=== PATIENT | female | born 1960 | race Caucasian/White ===

== ENCOUNTER 2017-11-15 09:57 | Inpatient (IN) | payer MEDICARE, BC ==
[~2017-11-15] VITALS: Ht 172.7 cm; Wt 115.2 kg
[~2017-11-15 09:57] MED LIST: ASPIR 8181 MG PO; ASTAGRAF XL1 MG PO; AVAPRO 150 MG150 MG PO; BACTRIM DS TAB1 EACH PO; CALCIUM 500 +1 EAC5 PO; CELLCEPT 250 M250 M1 PO; LOPRESSOR50 PO; MAGOX 400400 MG PO; OMEPRAZOLE40 MG PO; PREDNISONE 10 M10 MG PO; TACROLIMUS1 MG PO; UNICOMPLEX M TA1 TA1 PO; ZOCOR20 MG PO
[2017-11-15 10:03] VITALS: BP 120/75
[2017-11-15] MEDS ORDERED: PROCHAMBER1 EACH INH (10:33)
[2017-11-15 11:02] LABS: HEMATOCRIT 40.7 % (37.0-47.0); HEMOGLOBIN 13.1 gm/dL (12.0-15.0); MCH 26.8 pg (26.0-34.0); MCHC 32.2 g/dL (28.0-37.0); MCV 83.3 fL (80.0-100.0); MPV 8.1 fl. (7.2-11.1); NUCLEATED RBCS 0 /100WBC; PLATELET COUNT* 277 thou/uL (150-400); RBC 4.89 mil/uL (4.20-5.00); RDW-CV 15.3 % (10.5-14.5); WBC 11.2 thou/uL (4.0-11.0)
[2017-11-15 11:11] LABS: ANION GAP 7 mmol/L (7-16); BUN 23 mg/dL (7-18); CALCIUM 9.5 mg/dL (8.5-10.1); CHLORIDE 97 mmol/L (98-107); CO2 28 mmol/L (21-32); CREATININE 1.9 mg/dL (0.6-1.3); GLUCOSE 126 mg/dL (70-99); POTASSIUM 3.9 mmol/L (3.5-5.1); SODIUM 132 mmol/L (136-145)
[2017-11-15 11:22] LABS: ALBUMIN 3.2 g/dL (3.4-5.0); ALKALINE PHOSPHATASE 89 U/L (46-116); NT-PRO BRAIN NAT PEPTIDE 1008 pg/mL (<300); SGOT 18 U/L (15-37); SGPT 21 U/L (30-65); TOTAL BILIRUBIN 0.8 mg/dL (<0.1-1.0); TOTAL PROTEIN 6.5 g/dL (6.4-8.2); TROPONIN-I LEVEL <0.06 ng/mL (<0.06)
[2017-11-15 11:26] LABS: ABSOLUTE BASOPHILS 0.1 thou/uL (0.0-0.2); ABSOLUTE LYMPHOCYTES 1.5 thou/uL (0.8-5.3); ABSOLUTE MONOCYTES 1.6 thou/uL (0.0-1.2); ABSOLUTE NEUTROPHILS 8.1 thou/uL (1.6-8.1); PLATELET ESTIMATE ADEQUATE
[2017-11-15 12:00] VITALS: BP 128/53
[2017-11-15 12:09] VITALS: BP 102/53
[2017-11-15 17:11] VITALS: BP 141/74
[2017-11-15 20:40] VITALS: BP 104/43
[2017-11-16] VITALS: BP 131/59
[2017-11-16 04:25] LABS: HEMATOCRIT 36.7 % (37.0-47.0); HEMOGLOBIN 11.8 gm/dL (12.0-15.0); MCH 27.2 pg (26.0-34.0); MCHC 32.2 g/dL (28.0-37.0); MCV 84.3 fL (80.0-100.0); MPV 8.5 fl. (7.2-11.1); RBC 4.35 mil/uL (4.20-5.00); RDW-CV 15.1 % (10.5-14.5); WBC 7.4 thou/uL (4.0-11.0)
[2017-11-16 04:51] LABS: CALCIUM 8.9 mg/dL (8.5-10.1); CREATININE 1.8 mg/dL (0.6-1.3); MAGNESIUM 1.6 mg/dL (1.8-2.4); POTASSIUM 3.8 mmol/L (3.5-5.1)
[2017-11-16 08:00] VITALS: BP 156/74
[2017-11-16 10:41] LABS: URINE BILIRUBIN NEGATIVE (Negative); URINE BLOOD NEGATIVE (Negative); URINE CLARITY CLEAR; URINE COLOR YELLOW; URINE GLUCOSE-RANDOM 1+ (Negative); URINE KETONES NEGATIVE (Negative); URINE LEUKOCYTES-REFLEX NEGATIVE (Negative); URINE NITRITE-REFLEX NEGATIVE (Negative); URINE PROTEIN NEGATIVE (Negative); URINE SPECIFIC GRAVITY 1.015 (1.005-1.030); URINE UROBILINOGEN 0.2 E.U./dl (0.2-1.0)
--- NOTE | 2017-11-16 11:06 | EKG ---
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: : 1960 Requested By: Guille Valera Order Number: [id number] MD: Cristopher Bourgeois Measurements Intervals [place] Rate: 89 P: 29 [place]: 139 QRS: 13 QRSD: 97 T: 34 QT: 340 QTc: 414 Interpretive Statements Sinus rhythm Compared to ECG 01/24/2016 14:05:58 Sinus tachycardia no longer present Atrial premature complex(es) no longer present ST (T wave) deviation no longer present Electronically Signed On 11-16-2017 11:05:53 CDT by Cristopher Bourgeois [email or web address] <ELECTRONICALLY SIGNED> By: Cristopher Bourgeois MD, [facility] 11/16/17 1105 1042 1042 Cristopher Bourgeois MD, [facility] /EPI
[2017-11-16 16:00] VITALS: BP 148/76
[2017-11-16 20:40] VITALS: BP 175/74
[2017-11-17 04:26] LABS: HEMOGLOBIN 11.8 gm/dL (12.0-15.0); MCH 26.9 pg (26.0-34.0); MCHC 31.9 g/dL (28.0-37.0); MCV 84.3 fL (80.0-100.0); MPV 8.5 fl. (7.2-11.1); RBC 4.39 mil/uL (4.20-5.00); RDW-CV 15.2 % (10.5-14.5); WBC 20.1 thou/uL (4.0-11.0)
[2017-11-17 04:59] LABS: ALBUMIN 2.9 g/dL (3.4-5.0); CALCIUM 9.2 mg/dL (8.5-10.1); CREATININE 1.6 mg/dL (0.6-1.3); MAGNESIUM 1.7 mg/dL (1.8-2.4); PHOSPHORUS* 2.8 mg/dL (2.5-4.9); POTASSIUM 4.3 mmol/L (3.5-5.1); TOTAL BILIRUBIN 0.4 mg/dL (<0.1-1.0); TOTAL PROTEIN 5.7 g/dL (6.4-8.2)
[2017-11-17 08:00] VITALS: BP 185/95
[2017-11-17 12:27] VITALS: BP 160/88
[2017-11-17 18:01] VITALS: BP 150/80
[2017-11-18 04:47] LABS: HEMATOCRIT 38.5 % (37.0-47.0); HEMOGLOBIN 12.4 gm/dL (12.0-15.0); MCH 26.9 pg (26.0-34.0); MCHC 32.1 g/dL (28.0-37.0); MCV 83.8 fL (80.0-100.0); MPV 8.3 fl. (7.2-11.1); RBC 4.59 mil/uL (4.20-5.00); RDW-CV 14.9 % (10.5-14.5); WBC 14.9 thou/uL (4.0-11.0)
[2017-11-18 05:20] LABS: CALCIUM 9.7 mg/dL (8.5-10.1); CREATININE 1.6 mg/dL (0.6-1.3); MAGNESIUM 1.8 mg/dL (1.8-2.4); POTASSIUM 4.6 mmol/L (3.5-5.1); TOTAL BILIRUBIN 0.4 mg/dL (<0.1-1.0); TOTAL PROTEIN 5.8 g/dL (6.4-8.2)
[2017-11-18 08:20] VITALS: BP 154/98
[2017-11-18 09:57] VITALS: BP 154/98
--- NOTE | 2017-12-14 21:06 | CON ---
[address] [address] CONSULTATION Name: FAMILIA GARCIA Room: [address] IN .R.#: [id number] Admission: 11/15/17 Attend Phys: Shiraz Calzada, Discharge: 11/18/17 Date of : 60 Report #: [id number] THIS REPORT FOR: //name// CC: Glenny Ellison Shiraz Calzada DATE OF SERVICE: 11/15/2017 RENAL CONSULTATIONi Thank you very much for asking to see the patient. HISTORY OF PRESENT ILLNESS: The patient is a 57-year-old white female with a known history of kidney and pancreas transplantation. She was admitted to [facility] on 11/15/2017 with a several-day history of nausea and vomiting and unable to keep fluids down. She also reported a low-grade fever on Thursday. Renal consultation was requested to assist with transplant and immunosuppression management. Nausea and vomiting have improved. There has been no chest pains or shortness of breath. No further fever. In fact, all other systems were negative. PAST MEDICAL HISTORY: 1. Kidney transplant in 2003, baseline creatinine of 1.5. 2. Pancreas transplant in 2004. 3. Chronic immunosuppression. 4. History of shingles. 5. History of coronary artery disease and stent placement. 6. COPD. 7. Gastroesophageal reflux. 8. Hypertension. ALLERGIES: No known drug allergies. SOCIAL HISTORY: Negative for tobacco use or alcohol use. She lives with her sister. FAMILY HISTORY: Negative for kidney disease. CURRENT MEDICATIONS: Multivitamin daily, magnesium 400 mg daily, calcium 600 mg daily, aspirin 81 mg daily, losartan 50 mg daily, Rocephin 1 g daily, Protonix 20 mg daily, tacrolimus 1 mg at bedtime, enoxaparin 30 mg at bedtime, mycophenolate 250 mg b.i.d., metoprolol succinate 25 mg b.i.d., atorvastatin 20 mg at bedtime, Zofran, methylprednisolone 62.5 mg every 8 hours. PHYSICAL EXAMINATION: VITAL SIGNS: Blood pressure 102/53, pulse 88, temperature 99.2. [place] [address] CONSULTATION Name: FAMILIA GARCIA Room: [address]#: [id number] Admission: 11/15/17 Attend Phys: Shiraz Calzada, Discharge: 11/18/17 Date of : 60 Report #: [id number] GENERAL: She is awake and alert, well appearing. NECK: No jugular venous distention. CHEST: Clear. HEART: Regular rate and rhythm. ABDOMEN: Soft. There was no edema. LABORATORY DATA: White count 11,200, hemoglobin 13.1, hematocrit 40.7%, platelet count of [id number]. Sodium 132, potassium 3.9, chloride 97, CO2 28, BUN 23, creatinine 1.9, calcium 9.5, phosphorus 3.3, magnesium 1.5. IMPRESSION: 1. Kidney transplant. Her baseline creatinine is 1.5. Her current creatinine is 1.9, likely due to volume depletion. 2. Pancreas transplant in 2004. 3. Chronic immunosuppression. 4. Volume depletion. 5. Febrile illness, likely bronchitis. 6. Hypertension. 7. Chronic obstructive pulmonary disease. 8. Gastroesophageal reflux. 9. History of coronary artery disease and stent placement. 10. History of shingles. PLAN: 1. We will increase IV fluids. 2. We will adjust her tacrolimus dose. 3. Continue oral prednisone. 4. Follow laboratory data carefully. Further recommendations will depend on clinical course. Thank you very much for asking to see the patient and assist in her care. <ELECTRONICALLY SIGNED> By: Akbar Vicente MD 12/14/17 2106 1427 0018Manav Alexander MD /nt
== END 2017-11-18 12:10 | disposition home or self-care (01) | DRG 871 ==
LOC: M.ERS 09:57 → M.3W 11:47 → M.TBA-ER 11:47 → M.3W 12:19
PROVIDERS: Emergency Medicine Emergency Medical Services; Internal Medicine; ADMIT Family Medicine
DX: A41.9 Sepsis, unspecified organism (principal); J96.01 Acute respiratory failure with hypoxia; N17.9 Acute kidney failure, unspecified; Z94.0 Kidney transplant status; Z94.83 Pancreas transplant status; E86.0 Dehydration; K21.9 Gastro-esophageal reflux disease without esophagitis; E66.01 Morbid (severe) obesity due to excess calories; E83.42 Hypomagnesemia; D89.9 Disorder involving the immune mechanism, unspecified; J44.9 Chronic obstructive pulmonary disease, unspecified; I25.10 Atherosclerotic heart disease of native coronary artery without angina pectoris; I12.9 Hypertensive chronic kidney disease with stage 1 through stage 4 chronic kidney disease, or unspecified chronic kidney disease; N18.9 Chronic kidney disease, unspecified; Z87.891 Personal history of nicotine dependence; Z98.61 Coronary angioplasty status; I25.2 Old myocardial infarction; Z98.49 Cataract extraction status, unspecified eye; Z82.49 Family history of ischemic heart disease and other diseases of the circulatory system; Z83.3 Family history of diabetes mellitus; Z82.5 Family history of asthma and other chronic lower respiratory diseases; Z79.82 Long term (current) use of aspirin; Z79.899 Other long term (current) drug therapy; Z68.38 Body mass index [BMI] 38.0-38.9, adult

== ENCOUNTER 2017-11-22 05:54 | Inpatient (IN) | payer MEDICARE, BC ==
[2017-11-22] VITALS (9 sets, daily range): BP systolic 93–181; BP diastolic 43–78
[~2017-11-22] VITALS: Ht 170.2 cm; Wt 112.9 kg
[~2017-11-22 05:54] MED LIST changes: +PROCHAMBER1 EACH INH
[2017-11-22 06:23] LABS: HEMATOCRIT 44.5 % (37.0-47.0); HEMOGLOBIN 14.4 gm/dL (12.0-15.0); MCH 27.1 pg (26.0-34.0); MCHC 32.4 g/dL (28.0-37.0); MCV 83.6 fL (80.0-100.0); MPV 8.1 fl. (7.2-11.1); NUCLEATED RBCS 0 /100WBC; PLATELET COUNT* 289 thou/uL (150-400); RBC 5.32 mil/uL (4.20-5.00); RDW-CV 15.6 % (10.5-14.5); WBC 13.3 thou/uL (4.0-11.0)
[2017-11-22 06:38] LABS: ANION GAP 8 mmol/L (7-16); BUN 28 mg/dL (7-18); CALCIUM 9.3 mg/dL (8.5-10.1); CHLORIDE 99 mmol/L (98-107); CO2 28 mmol/L (21-32); GLUCOSE 122 mg/dL (70-99); POTASSIUM 4.3 mmol/L (3.5-5.1); SODIUM 135 mmol/L (136-145)
[2017-11-22 06:49] LABS: ALBUMIN 3.4 g/dL (3.4-5.0); ALKALINE PHOSPHATASE 80 U/L (46-116); SGOT 24 U/L (15-37); SGPT 33 U/L (30-65); TOTAL PROTEIN 6.6 g/dL (6.4-8.2); TROPONIN-I LEVEL <0.06 ng/mL (<0.06)
[2017-11-22 06:50] LABS: NT-PRO BRAIN NAT PEPTIDE 1304 pg/mL (<300)
[2017-11-22 06:59] LABS: ABSOLUTE LYMPHOCYTES 1.1 thou/uL (0.8-5.3); ABSOLUTE MONOCYTES 0.7 thou/uL (0.0-1.2); ABSOLUTE NEUTROPHILS 11.6 thou/uL (1.6-8.1); PLATELET ESTIMATE ADEQUATE
[2017-11-22 07:00] LABS: ANISOCYTOSIS 1+; POIKILOCYTOSIS 1+
[2017-11-22 09:05] LABS: BE -2.3 mmol/L (-2 to +3); PCO2 28.1 mmHg (35.0-45.0); PO2 82.7 mmHg (75.0-100.0); pH 7.471 (7.340-7.450)
--- NOTE | 2017-11-22 12:37 | EKG ---
[place] [address] ELECTROCARDIOGRAM REPORT Name: FAMILIA GARCIA Room: [address] ADM IN ..#: [id number] Admission: 11/22/17 Attend Phys: Shiraz Calzada, Discharge: Date of : 60 Report #: [id number] THIS REPORT FOR: //name// [facility] ED Test Date: 2017-11-22 Test Time: 06:17:50 Pat Name: FAMILIA GARCIA Department: Room: 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
[2017-11-23 04:00] VITALS: BP 150/74
[2017-11-23 05:05] LABS: ABSOLUTE LYMPHOCYTES 0.6 thou/uL (0.8-5.3); ABSOLUTE MONOCYTES 0.5 thou/uL (0.0-1.2); ABSOLUTE NEUTROPHILS 5.7 thou/uL (1.6-8.1); BASOPHILS 0.2 %; HEMATOCRIT 37.7 % (37.0-47.0); HEMOGLOBIN 12.5 gm/dL (12.0-15.0); LYMPHOCYTES 9.4 %; MCH 27.3 pg (26.0-34.0); MCHC 33.1 g/dL (28.0-37.0); MCV 82.5 fL (80.0-100.0); MONOCYTES 7.4 %; MPV 8.2 fl. (7.2-11.1); NUCLEATED RBCS 0 /100WBC; PLATELET COUNT* 225 thou/uL (150-400); RBC 4.57 mil/uL (4.20-5.00); RDW-CV 15.2 % (10.5-14.5); WBC 6.9 thou/uL (4.0-11.0)
[2017-11-23 05:45] LABS: CALCIUM 8.9 mg/dL (8.5-10.1); CREATININE 1.3 mg/dL (0.6-1.3); POTASSIUM 4.1 mmol/L (3.5-5.1)
[2017-11-23 08:00] VITALS: BP 113/63
[2017-11-23] MEDS ORDERED: METOPROLOL TART25 MG PO (12:07)
[2017-11-23 12:14] VITALS: BP 151/56
== END 2017-11-23 13:00 | disposition home or self-care (01) | DRG 683 ==
LOC: M.ERS 05:54 → M.2W 09:00 → M.TBA-ER 09:00 → M.2W 09:52
PROVIDERS: Emergency Medicine Emergency Medical Services; Internal Medicine; Personal Emergency Response Attendant; ADMIT Family Medicine
DX: N17.9 Acute kidney failure, unspecified (principal); Z94.0 Kidney transplant status; Z94.83 Pancreas transplant status; E86.0 Dehydration; I95.1 Orthostatic hypotension; I25.2 Old myocardial infarction; F17.210 Nicotine dependence, cigarettes, uncomplicated; N18.9 Chronic kidney disease, unspecified; Z79.899 Other long term (current) drug therapy; Z98.49 Cataract extraction status, unspecified eye; Z82.49 Family history of ischemic heart disease and other diseases of the circulatory system; Z82.5 Family history of asthma and other chronic lower respiratory diseases; Z83.3 Family history of diabetes mellitus; Z95.5 Presence of coronary angioplasty implant and graft

== ENCOUNTER → 2018-06-01 | Outpatient (CLI) | payer MEDICARE, BC ==
[~2018-06-01] MED LIST changes: +METOPROLOL TART25 MG PO
== END ==
LOC: M.RAD 05-27 15:30
DX: Z13.820 Encounter for screening for osteoporosis (principal); Z78.0 Asymptomatic menopausal state

== ENCOUNTER 2018-12-23 11:02 | Inpatient (IN) | payer MEDICARE, BC ==
[~2018-12-23] VITALS: Ht 170.2 cm; Wt 111.6 kg
[2018-12-23 11:04] VITALS: BP 142/50
[2018-12-23] MEDS ORDERED: SINGULAIR 10 MG10 M1 PO (11:13)
[2018-12-23 11:45] LABS: HEMATOCRIT 36.3 % (37.0-47.0); HEMOGLOBIN 11.9 gm/dL (12.0-15.0); MCH 29.9 pg (26.0-34.0); MCHC 32.9 g/dL (28.0-37.0); MCV 91.1 fL (80.0-100.0); MPV 7.7 fl. (7.2-11.1); NUCLEATED RBCS 0 /100WBC; PLATELET COUNT* 274 thou/uL (150-400); RBC 3.99 mil/uL (4.20-5.00); RDW-CV 15.7 % (10.5-14.5); WBC 18.9 thou/uL (4.0-11.0)
[2018-12-23 11:53] LABS: BE 1.6 mmol/L (-2 to +3); PCO2 38.8 mmHg (35.0-45.0); PO2 100.2 mmHg (75.0-100.0)
[2018-12-23 12:05] LABS: CALCIUM 8.6 mg/dL (8.5-10.1); POTASSIUM 4.1 mmol/L (3.5-5.1)
[2018-12-23 12:12] LABS: ALBUMIN 2.8 g/dL (3.4-5.0); MAGNESIUM 1.2 mg/dL (1.8-2.4); TOTAL BILIRUBIN 0.7 mg/dL (<0.1-1.0); TOTAL PROTEIN 5.8 g/dL (6.4-8.2)
[2018-12-23 12:26] LABS: ABSOLUTE LYMPHOCYTES 1.1 thou/uL (0.8-5.3); ABSOLUTE MONOCYTES 0.9 thou/uL (0.0-1.2); ABSOLUTE NEUTROPHILS 16.8 thou/uL (1.6-8.1); PLATELET ESTIMATE ADEQUATE
[2018-12-23 15:31] LABS: URINE BILIRUBIN NEGATIVE (Negative); URINE BLOOD NEGATIVE (Negative); URINE CLARITY CLEAR; URINE COLOR YELLOW; URINE GLUCOSE-RANDOM NEGATIVE (Negative); URINE KETONES NEGATIVE (Negative); URINE LEUKOCYTES-REFLEX 1+ (Negative); URINE NITRITE-REFLEX NEGATIVE (Negative); URINE PROTEIN NEGATIVE (Negative); URINE SPECIFIC GRAVITY <= 1.005 (1.005-1.030); URINE UROBILINOGEN 0.2 E.U./dl (0.2-1.0)
[2018-12-23 15:37] LABS: HYALINE CASTS 0-3 Few /LPF (None Seen); MUCUS None Seen strn/LPF (None Seen); SQUAMOUS >10 Many /LPF (0-3)
[2018-12-23 15:38] LABS: BACTERIA-REFLEX 1-9 Few /HPF (None Seen); CRYSTALS None Seen /LPF (None Seen); URINE RBC 0-2 Rare /HPF (0-2); URINE WBC-REFLEX 6-15 Few /HPF (0-5)
--- NOTE | 2018-12-23 16:33 | NUR ---
REPORT GIVEN TO VANCE ROME WHO IS TO ASSUME PT CARE INPATIENT NURSE.
[2018-12-23 16:35] VITALS: BP 179/71
--- NOTE | 2018-12-23 17:00 | NUR ---
PT ARRIVED TO UNIT AT APPROX 1650 VIA CART, ABLE TO TRANSFER SELF TO BED. VSS, FEBRILE, REMAINS ON 2LPM VIA NC FOR O2 SAT GREATER THAN 91%, PT CONT TO COUGH, STATES COUGHING UP THICK GREEN PHLEGM. UP WITH STANDBY ASSIST D/T WEAKNESS, ORIENTED TO CALL LIGHT AND ROOM.
--- NOTE | 2018-12-23 18:06 | EKG ---
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1960 Requested By: Reba Pinto Order Number: [id number] MD: Kevin Yeung Measurements Intervals [place] Rate: 82 P: 25 [place]: 138 QRS: 7 QRSD: 83 T: 19 QT: 370 QTc: 432 Interpretive Statements Sinus rhythm Low voltage, precordial leads Compared to ECG 11/22/2017 06:17:50 Low QRS voltage now present Electronically Signed On 12-23-2018 18:06:07 CDT by Kevin Yeung [email or web address] <ELECTRONICALLY SIGNED> By: Bhumi Yeung MD, [facility] 12/23/18 1806 1109 1109 Bhumi Yeung MD, [facility] /EPI
[2018-12-23] MEDS ORDERED: VALTREX 500 MG500 MG PO (18:37)
[2018-12-23] MEDS ORDERED: IRBESARTAN150 MG PO (18:39)
[2018-12-23 20:00] VITALS: BP 156/60
[2018-12-23 21:35] LABS: HEMATOCRIT 34.6 % (37.0-47.0); HEMOGLOBIN 11.4 gm/dL (12.0-15.0); MCH 29.9 pg (26.0-34.0); MCV 90.7 fL (80.0-100.0); MPV 7.4 fl. (7.2-11.1); RBC 3.81 mil/uL (4.20-5.00); RDW-CV 16.1 % (10.5-14.5)
[2018-12-23 21:47] LABS: CALCIUM 8.7 mg/dL (8.5-10.1); CREATININE 1.9 mg/dL (0.6-1.3); POTASSIUM 4.2 mmol/L (3.5-5.1)
[2018-12-24 00:36] VITALS: BP 177/63
[2018-12-24 04:48] VITALS: BP 148/70
--- NOTE | 2018-12-24 04:53 | NUR ---
vitals wnl, afebrile. able to walk to bathroom with a steady gait. non-productive cough, knee pain main concern. otherwise uneventful night. able to turn self in bed. remains on 2L per NC. call light within reach.
[2018-12-24 08:00] VITALS: BP 132/65
[2018-12-24 12:10] VITALS: BP 157/76
--- NOTE | 2018-12-24 15:20 | NUR ---
Pt is A&O. Pt lives in the basement apartment of her sisters home. Independent, they share meals. Pt has a walker, cane, grab bars and shower chair, Pt states that she does not currently use any of her DME. No o2. Hx of HH, does not recall the name of the agency. No hx of SNF. Goal is home at ut, no needs anticipated. Following.
[2018-12-24 15:31] VITALS: BP 150/56
--- NOTE | 2018-12-24 17:00 | NUR ---
ASSUMED PT CARE AT 0730. PT WAS NOTED TO BE SITTING IN HIS RECLINER, HIS SON VISITING WITH HIM. PT DENIED HAVING ANY PAIN OR DISCOMFORT. ASSESSMENT COMPLETED AND CHARTED, HOURLY ROUNDS COMPLETED AND CHARTED.MEDS GIVEN PER ORDERS, PT WAS DISCHARGED TO HOME AND RIDING WITH HIS SISTER. THIS NURSE ASSISTED PT TO THE FRONT OF HOSPITAL VIA W/C AND INTO HIS SISTERS TRUCK SAFELY. TELE LEADS, MONITOR AND IV WERE REMOVED BEFORE PT LEFT THE ROOM. PT HAD ALL HIS BELONGINGS AND HIS DISCHARGE PACKET WITH HIM WHEN HE LEFT.
--- NOTE | 2018-12-24 18:53 | NUR ---
ASSUMED PT CARE AT 0730. ASSESSMENT ET VS COMPLETE ET DOCUMENTED IN THE CHART. PT HOURLY ROUNDS COMPLETED, CARD MONITOR TRACING SR. UA COLLECTED ET SENT TO LAB FOR ANALYSIS. PT PLEASANT COOPERATIVE WITH HER NURSING CARES. PT HAD FEVER ET CHILLS.TREATED WITH TYLENOL. FEVER RESPONDEDTO TYLENOL ET DECLINED SLOW BUT STEADY.
[2018-12-24 20:00] VITALS: BP 153/62
[2018-12-25] VITALS: BP 155/64
[2018-12-25 04:00] VITALS: BP 153/67
--- NOTE | 2018-12-25 04:06 | NUR ---
ASSUMED PT CARE AT APPROX 1930. PT IS AWAKE AND ORIENTED X4. VSS ON 2L OF O2/NC. SATELLITE SPECIALIST IN PLACE TRACING SR. ASSESSMENT DONE AND CHARTED. [T C/O BILATERAL KNEE PAIN RELIEVED BY TYLENOL GIVEN PER JUN. PT IS ABLE TO SLEEP MOST OF THE NIGHT. CALL LIGHT WITHIN REACH. HOURLY ROUNDING DONE FOR PT SAFETY. FALL PRECAUTIONS IN PLACE.
[2018-12-25 05:11] LABS: ABSOLUTE EOSINOPHILS 0.1 thou/uL (0.0-0.7); ABSOLUTE LYMPHOCYTES 0.8 thou/uL (0.8-5.3); ABSOLUTE MONOCYTES 0.5 thou/uL (0.0-1.2); ABSOLUTE NEUTROPHILS 9.5 thou/uL (1.6-8.1); BASOPHILS 0.4 %; EOSINOPHILS 1.2 %; HEMATOCRIT 31.6 % (37.0-47.0); HEMOGLOBIN 10.3 gm/dL (12.0-15.0); LYMPHOCYTES 7.6 %; MCH 29.9 pg (26.0-34.0); MCHC 32.7 g/dL (28.0-37.0); MCV 91.6 fL (80.0-100.0); MPV 8.1 fl. (7.2-11.1); NUCLEATED RBCS 0 /100WBC; PLATELET COUNT* 215 thou/uL (150-400); POLYS 85.8 %; RBC 3.45 mil/uL (4.20-5.00); WBC 11.1 thou/uL (4.0-11.0)
--- NOTE | 2018-12-25 05:50 | CON ---
[address] [address] CONSULTATION Name: FAMILIA GARCIA Room: [address] IN M.R.#: [id number] Admission: 12/23/18 Attend Phys: Oscar Duke Discharge: Date of : 60 Report #: [id number] THIS REPORT FOR: //name// CC: Glenny Ellison Raleigh Sauer DATE OF SERVICE: 12/24/2018 ATTENDING PHYSICIAN: Dr. Sauer. REASON FOR EVALUATION: Febrile illness with likely a lower respiratory tract infection in the setting of kidney-pancreas transplantation. HISTORY OF PRESENT ILLNESS: Chart reviewed, the patient examined. This 58-year-old woman, with known diabetes mellitus complicated by vasculopathy with previous kidney pancreas transplantation at least 4 years, who was noted with, has a chronic cough; however, over the course of the last 48 hours prior to her admission, developed fevers somewhat more productive of colored sputum, sore throat, and congestion. Due to its worsening nature, she was brought to the Emergency Room and subsequently admitted. Initial evaluation is question of a patchy bibasilar pneumonitis. White count was elevated at 18.9. Prominent neutrophilia. Urinalysis 6-15 white cells, 1-9 bacteria. Started empirically on combination therapy with azithromycin and ceftriaxone. Blood cultures were collected thus far no growth. She is quite ill at this point. She is maintained on 2 liters nasal cannula oxygen. She is not encephalopathic, not hemodynamically labile. ALLERGIES: None known. MEDICATIONS: Include tacrolimus, azithromycin, prednisone, acyclovir, ceftriaxone, montelukast, metoprolol, atorvastatin, mycophenolate, guaifenesin, pantoprazole, ipratropium and albuterol inhaler. PAST MEDICAL HISTORY: As described above with a kidney pancreas transplant, history of diabetes mellitus, known vasculopathy with previous acute myocardial infarction in 2003 and stenting, chronic renal insufficiency. SOCIAL HISTORY: Former smoker. No ethanol, no illicit drug use. FAMILY HISTORY: Noncontributory. REVIEW OF SYSTEMS: Admits to shaking chills somewhat diminished appetite. Denies significant gastrointestinal related issues. No new onset eruptions. PHYSICAL EXAMINATION: GENERAL: She appears ill, although not overtly toxic, [place] [address] CONSULTATION Name: FAMILIA GARCIA Room: [address] IN [facility]#: [id number] Admission: 12/23/18 Attend Phys: Oscar Duke Discharge: Date of : 60 Report #: [id number] decubitus position. She does awaken. She makes eye contact. Most recent appears slightly undernourished. VITAL SIGNS: Temperature 101.5, pulse 85, respirations 17, blood pressure 157/76. SKIN: Warm, dry, no rashes. HEENT: Normocephalic. Extraocular muscles intact. NECK: Supple. LUNGS: Few scattered crackles, primarily at the bases. HEART: Regular. I do not appreciate murmur. ABDOMEN: Soft, mildly distended, nontender. No cyanosis. GENITOURINARY: Deferred. LABORATORY DATA: Enlargement echogenic right kidney, normal cortical thickness. Nothing for obstruction. Blood cultures sterile thus far. Prealbumin 14.2. Electrolytes: Sodium 134, potassium 4.2, chloride 101, bicarbonate is 24, anion gap of 9, BUN and creatinine 29 and 1.9. CBC: White count of 17.0, H and H 11.4 and 34.6, platelets of 257. Lactic acid 1.3. ABGs: pH 7.440, pCO2 of 38, pO2 of 100.2 on nasal cannula 2 liters. ASSESSMENT: Febrile illness, associated respiratory tract symptoms. She is quite ill. I think it is more likely common process, perhaps a pneumococcus. We will send off urinary antigens, also check for influenza. There has been some cases in the area thus far. Can entirely exclude opportunistic infections. We will adjust antimicrobial therapy a little bit pending the results of the blood, urine cultures, sputum culture has been ordered, although not collected. Discussed with Dr. Sauer. We will follow. <ELECTRONICALLY SIGNED> By: Leonidas Arellano MD 12/25/18 0550 1303 2350Jomasood Arellano MD /nt
[2018-12-25 08:00] VITALS: BP 197/77
--- NOTE | 2018-12-25 11:44 | NUR ---
ASSUMED CARE OF PATIENT THIS AM AT 0730. PATIENT IS ALERT AND ORIENTED X 4. SHE C/O A HEADACHE THIS AM. SHE HAS BEEN UP TO THE BATHROOM WITH STANDBY ASSIST. IV FLUIDS CONTINUED ORDERED. PATIENT CONTINUES TO RECIEVE IV ANTIBIOTICS. TELE SHOWS NSR. PATIENT MEDICATED FOR BRADSHAW WITH GOOD RESULTS. SHE REMAINS AFEBRILE. NO ACUTE RESPIRATORY DISTRESS. WILL CONTINUE PLAN OF CARE.
[2018-12-25 11:57] VITALS: BP 150/61
[2018-12-25 13:33] LABS: CALCIUM 9.1 mg/dL (8.5-10.1); CREATININE 1.4 mg/dL (0.6-1.3); POTASSIUM 4.6 mmol/L (3.5-5.1)
[2018-12-25 15:56] VITALS: BP 164/72
[2018-12-25 20:00] VITALS: BP 188/65
[2018-12-26] VITALS (7 sets, daily range): BP systolic 153–205; BP diastolic 67–92
--- NOTE | 2018-12-26 04:15 | NUR ---
ASSUMED PT CARE AT APPROX 1930. PT IS AWAKE AND ORIENTED X4. VSS ON ROOM AIR. NO DESATURATIONS NOTED. MICROSTRATEGY ARCHITECT DEVELOPER IN PLACE-TRACING SR. ASSESSMENT DONE AND CHARTED. PT IS ABLE TO SLEEP MOST OF THE NIGHT. CALL LIGHT WITHIN REACH. HOURLY ROUNDING DONE FOR PT SAFETY.
[2018-12-26 05:12] LABS: ALBUMIN 2.4 g/dL (3.4-5.0); CALCIUM 8.7 mg/dL (8.5-10.1); CREATININE 1.3 mg/dL (0.6-1.3); MAGNESIUM 1.6 mg/dL (1.8-2.4); PHOSPHORUS* 3.2 mg/dL (2.5-4.9); POTASSIUM 4.2 mmol/L (3.5-5.1)
--- NOTE | 2018-12-26 10:53 | NUR ---
ASSUMED CARE OF PATIENT THIS AM AT 0730. PATIENT IS ALERT AND ORIENTED X 4. SHE C/O KNEE PAIN THIS AM. PATIENT MEDICATED FOR PAIN. SHE HAS BEEN UP TO PERFORM ADLS. PATIENT IS PROGRESSING TOWARDS GOALS. IV ANTIBIOTICS CONTINUED. WILL CONTINUE PLAN OF CARE.
[2018-12-27] VITALS: BP 201/105
[2018-12-27 00:30] VITALS: BP 169/71
--- NOTE | 2018-12-27 03:52 | NUR ---
ASSUMED PT CARE AT APPROX 1930. PT IS AWAKE AND ORIENTED X4. VSS ON ROOM AIR. CAFE ATTENDANT TRACING SR. ASSESSMENT DONE AND CHARTED. PT C/O NECK AND BACK PAIN RELIEVED BY TYLENOL GIVEN PER JUN. PT IS ABLE TO SLEEP MOST IF THE NIGHT. CALL LIGHT WITHIN REACH.HOURLY ROUNDING DONE FOR SAFETY. FALL PRECAUTIONS IN PLACE.
[2018-12-27 04:00] VITALS: BP 191/87
[2018-12-27 05:07] LABS: ALBUMIN 2.5 g/dL (3.4-5.0); CALCIUM 8.9 mg/dL (8.5-10.1); CREATININE 1.4 mg/dL (0.6-1.3); MAGNESIUM 1.6 mg/dL (1.8-2.4); PHOSPHORUS* 3.2 mg/dL (2.5-4.9); POTASSIUM 3.8 mmol/L (3.5-5.1)
[2018-12-27 08:00] VITALS: BP 198/78
[2018-12-27 12:23] VITALS: BP 175/73
[2018-12-27] MEDS ORDERED: CEFDINIR300 MG PO (13:14)
[2018-12-27] MEDS ORDERED: LOPRESSOR25 PO (13:14)
[2018-12-27] MEDS ORDERED: HYDRALAZINE 2525 MG PO (13:14)
[2018-12-27] MEDS ORDERED: MUCINEX600 MG PO (13:14)
[2018-12-27 15:21] VITALS: BP 175/73
--- NOTE | 2019-01-01 07:32 | CON ---
[address] [address] CONSULTATION Name: FAMILIA GARCIA Room: [address] IN M.R.#: [id number] Admission: 12/23/18 Attend Phys: Oscar Duke Discharge: 12/27/18 Date of : 60 Report #: [id number] THIS REPORT FOR: //name// CC: Glenny Terra Sauer DATE OF SERVICE: 12/24/2018 NEPHROLOGY CONSULTATION CONSULTING PHYSICIAN: Dr. Sauer. REASON FOR NEPHROLOGY CONSULTATION: Acute kidney injury on chronic kidney disease and history of renal transplant. REASON FOR ADMISSION: Shortness of breath. HISTORY OF PRESENT ILLNESS: This is a 58-year-old female with past medical history of kidney pancreas transplant in 2003 and 2004 respectively, follows [facility], transplant was at [facility], multiple episodes of dehydration and acute kidney injuries, and according to the patient, her baseline creatinine is more around 1.7, chronic cough, came in because of greenish sputum, chills and cough. The patient reported that last week, Thursday, she had gone out to the park with lot of children ____, and for the last 2 days, she has not been feeling well with the above symptoms. Her chest x-ray showed pneumonia and she has been started on antibiotics in the form of ceftriaxone and Zithromax and she has been feeling a little better, although she is still having the cough with sputum, but sputum is becoming agriculture consultant in color from darker green in color. She has no trouble urinating. She also takes irbesartan at home. Her blood pressures have not been low. At home, she takes prednisone 10 mg a day, Prograf 0.5 mg in the morning and 0.5 mg in the evening and 1 mg in the morning, CellCept 500 mg twice a day. She is not reporting any diarrhea. ALLERGIES: No known drug allergies. REVIEW OF SYSTEMS: As mentioned in history of present illness, otherwise 10-point review of systems done, negative. HOME MEDICATIONS: Include montelukast, mycophenolate mofetil 500 mg twice a day, irbesartan 150 mg once a day, prednisone 10 mg a day, simvastatin 20 mg a day, omeprazole, calcium carbonate, inhaler, metoprolol tartrate, acyclovir, tacrolimus 0.5 mg and 1 mg and she takes 0.5 mg in the morning and 1 mg in the evening, magnesium oxide 400 mg once a day, multivitamin. PAST MEDICAL AND SURGICAL HISTORY: Includes coronary artery disease with a stent in 2002, kidney pancreas transplant at [facility], cataract surgery, [place] [address] CONSULTATION Name: FAMILIA GARCIA Room: [address] IN M.R.#: [id number] Admission: 12/23/18 Attend Phys: Oscar Duke Discharge: 12/27/18 Date of : 60 Report #: [id number] chronic kidney disease stage 3, baseline creatinine more around 1.6-1.8, pneumonia, sepsis, [place] with stent, cataract surgery, orthostatic hypotension and a fistula in the right arm. FAMILY HISTORY: No history of any kidney disease in the family. SOCIAL HISTORY: She is a former smoker, does not smoke now, does not use alcohol and reports no illicit drugs. She lives with her sister. She moved from [place] not recently, but in the last couple of years. PHYSICAL EXAMINATION: VITAL SIGNS: Her blood pressure is 132/65, pulse rate is 96, respiratory rate is 16, temperature is 37.6 and pulse ox is 96% on 2 liters of oxygen by nasal cannula. GENERAL: She is sitting up in bed. She is awake, alert, oriented x 3. HEAD AND EYES: Atraumatic, normocephalic and had normal conjunctivae. EARS, NOSE, AND THROAT: Mucous membranes are moist. NECK: There is no JVD. CHEST: Shows bilaterally diminished breath sounds and wheezing posteriorly. HEART: S1, S2 normal. No murmurs. ABDOMEN: Soft, nondistended, nontender. Right lower quadrant transplant site looks good. LOWER EXTREMITIES: There is no edema. NEUROLOGICAL: Gross neurological function is intact. PSYCHIATRIC: Mood and affect seems to be normal. LABORATORY DATA: WBC 17.0, hemoglobin 11.4. Sodium was 134, creatinine 1.9 down from 2 and other labs are reviewed. IMAGING: Chest x-ray was reviewed. ASSESSMENT: 1. Acute kidney injury on chronic kidney disease stage 3 and history of kidney pancreas transplant. Baseline creatinine is around ____. Creatinine was 2.0 on admission. The patient also in addition being volume depleted was also taking irbesartan, which will also contribute to acute kidney injury in the setting of volume depletion. UA does not have protein or blood on dipstick and it had some squamous epithelial cells with white cells; however, the patient is not reporting any dysuria at all. 2. Pneumonia in an immunosuppressed patient. She is on antibiotics, ceftriaxone and Zithromax right now as per primary team. 3. History of asthma. 4. On chronic immunosuppression with history of kidney pancreatic transplant. 5. Dehydration. 6. Hypertension. 7. [place] [address] CONSULTATION Name: FAMILIA GARCIA Room: [address]#: [id number] Admission: 12/23/18 Attend Phys: Oscar Duke Discharge: 12/27/18 Date of : 60 Report #: [id number] 8. Hyperlipidemia. 9. Gastroesophageal reflux disorder. PLAN: 1. I have adjusted her immunosuppressive dosages. She takes prednisone 10 mg a day, CellCept 500 mg twice a day and tacrolimus. It looks like she takes 0.5 mg in the morning and 1 mg in the evening. 2. We can decrease the IV fluids to normal saline at 75 mL an hour. 3. I's and O's. 4. We will check a transplant ultrasound. 5. We will also check a tacrolimus level. 6. Avoid NSAIDs and all sorts of nephrotoxic agents. 7. Creatinine is improving, getting closer to her baseline. Thank you for this consultation. We will continue to follow along with you. Discussed with the patient and the patient's nurse. <ELECTRONICALLY SIGNED> By: Allegra Burton MD 01/01/19 0732 0955 [id number] Burton MD /nt
== END 2018-12-27 16:30 | disposition home or self-care (01) | DRG 177 ==
LOC: M.ERS 11:02 → M.TBA-ER 13:44 → M.2W 15:50 → M.TBA-ER 15:50 → M.2W 16:46
PROVIDERS: Internal Medicine Nephrology; Personal Emergency Response Attendant; ADMIT Internal Medicine
DX: J15.6 Pneumonia due to other Gram-negative bacteria (principal); J96.91 Respiratory failure, unspecified with hypoxia; N39.0 Urinary tract infection, site not specified; Z94.0 Kidney transplant status; Z94.83 Pancreas transplant status; N17.9 Acute kidney failure, unspecified; E87.3 Alkalosis; J98.11 Atelectasis; E11.51 Type 2 diabetes mellitus with diabetic peripheral angiopathy without gangrene; N18.3 Chronic kidney disease, stage 3 (moderate); J45.909 Unspecified asthma, uncomplicated; E86.0 Dehydration; I12.9 Hypertensive chronic kidney disease with stage 1 through stage 4 chronic kidney disease, or unspecified chronic kidney disease; E83.42 Hypomagnesemia; E78.5 Hyperlipidemia, unspecified; K21.9 Gastro-esophageal reflux disease without esophagitis; I25.10 Atherosclerotic heart disease of native coronary artery without angina pectoris; E11.22 Type 2 diabetes mellitus with diabetic chronic kidney disease; Z87.891 Personal history of nicotine dependence; I25.2 Old myocardial infarction; Z95.5 Presence of coronary angioplasty implant and graft; Z79.899 Other long term (current) drug therapy; Z82.5 Family history of asthma and other chronic lower respiratory diseases; Z83.3 Family history of diabetes mellitus; Z82.49 Family history of ischemic heart disease and other diseases of the circulatory system

== ENCOUNTER 2019-02-21 08:26 | Inpatient (IN) | payer MEDICARE, BC ==
[~2019-02-21] VITALS: Ht 152.4 cm; Wt 111.1 kg
--- NOTE | ~2019-02-21 | CON ---
[address] [address] CONSULTATION Name: FAMILIA GARCIA Room: [address] IN M.R.#: [id number] Admission: 02/21/19 Attend Phys: Oscar Duke Discharge: Date of : 60 Report #: [id number] THIS REPORT FOR: //name// CC: GRANT physician/PCP JAZMINE Ross DICTATED BY: Christina Brandt [facility] DATE OF SERVICE: 02/22/2019 Please note at the time of this dictation, the patient was seen and physically examined by myself. REASON FOR CONSULTATION: She had nausea and vomiting, which now has resolved. HISTORY OF PRESENT ILLNESS: This is a 58-year-old female who presented to the Emergency Room with worsening of her shortness of breath, productive cough. She states she was diagnosed with pneumonia in December of this year and has not been feeling as well. She did have complaints of the nausea and vomiting with the onset; however, she felt that it was more related to her coughing and not wanting to eat. She denied any fever, chills, abdominal pain or any issues with acid reflux. She states when she did have a little of the nausea and vomiting, she did try some Pepto-Bismol and Tums; however, usually on a regular basis, she does not need to take that, it is very rare that she has any issues with acid reflux. The patient states she had a colonoscopy back at the [facility] when she had her renal transplant back in 2003 and she has not had another one since that time. She states her bowels typically move daily to twice a day, soft and formed with no issues of any bright red blood or melena. ALLERGIES: No known drug allergies. MEDICATIONS: From home include Mucinex, metoprolol, hydralazine, Omnicef, CellCept, Zocor, omeprazole, Mag-Ox, calcium carbonate, multivitamin, prochamber assistive device for an inhaler, prednisone, irbesartan, Valtrex, and Singulair. PAST MEDICAL HISTORY: She had an TN with stent placement in 2002, chronic kidney disease stage 3, pneumonia. PAST SURGICAL HISTORY: She had a kidney and pancreatic transplant in 2003 at the [facility], cataract surgery, TN with stent placement, and a fistula in her right arm. FAMILY HISTORY: Negative for any GI or female cancers. SOCIAL HISTORY: She denies any alcohol, tobacco [place] [address] CONSULTATION Name: FAMILIA GARCIA Room: [address]#: [id number] Admission: 02/21/19 Attend Phys: Oscar Duke Discharge: Date of : 60 Report #: [id number] REVIEW OF SYSTEMS: Twelve-point review of systems is essentially negative except what is mentioned in the HPI. PHYSICAL EXAMINATION: VITAL SIGNS: Temperature 36.6, pulse 113, respirations are 20, blood pressure 142/59. HEART: Regular rate and rhythm. LUNGS: Diminished, especially in the bases. ABDOMEN: Soft, positive bowel sounds in all 4 quadrants with no masses or tenderness noted. LABORATORY DATA: Hemoglobin is 12.7, white count is 14.1, platelets 288. GFR is 29. PT 10.8, INR 1.1. IMPRESSION: 1. Nausea and vomiting has resolved. 2. Status post pancreatic renal transplant in 2003. 3. Pneumonia. 4. Leukocytosis. 5. Chronic kidney disease stage 3. PLAN: Outpatient colonoscopy to be scheduled at a later date. Thank you for allowing us to participate in this patient's care. Please do not hesitate to call with any questions in regard to this consult. By: 1230 [id number] Thrasher MD /nt
[~2019-02-21 08:26] MED LIST changes: +CEFDINIR300 MG PO; +HYDRALAZINE 2525 MG PO; +IRBESARTAN150 MG PO; +LOPRESSOR25 PO; +MUCINEX600 MG PO; +SINGULAIR 10 MG10 M1 PO; +VALTREX 500 MG500 MG PO
[2019-02-21 08:28] VITALS: BP 145/51
[2019-02-21] MEDS ORDERED: PREDNISONE 5 MG5 MG PO (08:38)
[2019-02-21 09:01] LABS: ABSOLUTE BASOPHILS 0.1 thou/uL (0.0-0.2); ABSOLUTE EOSINOPHILS 0.6 thou/uL (0.0-0.7); ABSOLUTE LYMPHOCYTES 1.1 thou/uL (0.8-5.3); ABSOLUTE MONOCYTES 0.9 thou/uL (0.0-1.2); ABSOLUTE NEUTROPHILS 11.4 thou/uL (1.6-8.1); BASOPHILS 0.8 %; EOSINOPHILS 4.1 %; HEMATOCRIT 38.7 % (37.0-47.0); HEMOGLOBIN 12.7 gm/dL (12.0-15.0); LYMPHOCYTES 7.9 %; MCH 29.2 pg (26.0-34.0); MCHC 32.7 g/dL (28.0-37.0); MCV 89.3 fL (80.0-100.0); MONOCYTES 6.4 %; MPV 7.9 fl. (7.2-11.1); NUCLEATED RBCS 0 /100WBC; PLATELET COUNT* 288 thou/uL (150-400); POLYS 80.8 %; RBC 4.34 mil/uL (4.20-5.00); RDW-CV 15.9 % (10.5-14.5); WBC 14.1 thou/uL (4.0-11.0)
[2019-02-21 09:09] LABS: CALCIUM 9.1 mg/dL (8.5-10.1); CREATININE 1.8 mg/dL (0.6-1.3); POTASSIUM 4.2 mmol/L (3.5-5.1)
[2019-02-21 09:10] LABS: APTT 25.3 Seconds (25.0-31.3); INR 1.1; PROTIME 10.8 Seconds (9.20-11.50)
[2019-02-21 09:20] LABS: ALBUMIN 3.2 g/dL (3.4-5.0); TOTAL BILIRUBIN 0.5 mg/dL (<0.1-1.0); TOTAL PROTEIN 6.4 g/dL (6.4-8.2)
[2019-02-21 09:28] LABS: BE -0.4 mmol/L (-2 to +3); PCO2 35.2 mmHg (35.0-45.0); PO2 71.6 mmHg (75.0-100.0); pH 7.437 (7.340-7.450)
[2019-02-21 11:11] VITALS: BP 154/63
[2019-02-21 11:45] VITALS: BP 147/57
--- NOTE | 2019-02-21 15:14 | EKG ---
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
[2019-02-21 15:51] VITALS: BP 154/77
[2019-02-21 19:30] VITALS: BP 186/65
[2019-02-22 08:38] VITALS: BP 142/59
[2019-02-22 16:00] VITALS: BP 133/59
[2019-02-22 19:40] VITALS: BP 125/51
--- NOTE | 2019-02-23 08:02 | CON ---
[address] [address] CONSULTATION Name: FAMILIA GARCIA Room: [address] ADM IN M.R.#: [id number] Admission: 02/21/19 Attend Phys: Oscar Duke Discharge: Date of : 60 Report #: [id number] THIS REPORT FOR: //name// CC: GRANT physician/PCP Raleigh Sauer REASON FOR CONSULTATION: Shortness of breath, wheezes and cough. HISTORY OF PRESENT ILLNESS: This is a 58-year-old female patient with history of kidney and pancreatic transplant back in [id number] at [facility]. She reported since then she noticed that her breathing was not right. She would have recurrent bronchitis. However, for the last 2 years, her symptoms were more pronounced. She had a chronic cough with occasional sputum production. She was hospitalized in December, treated with IV antibiotic at this facility. Her symptoms improved with increasing steroid dose, then she had recurrence of her symptoms. At one point, she had been treated for nasal allergies with Flonase, although she is not consistent with that. She had been on Singulair for a few years now. At baseline, she is on mycophenolate, Prograf and 5 mg prednisone daily for her kidney transplant. She reports when she had these attacks of bronchitis, she will have wheezes, but there is no hemoptysis. She will be short of breath and she had a cough that was congested. She presented to this facility and admitted yesterday with a chief complaint of increasing cough, wheezing and shortness of breath. The cough is productive of yellowish sputum, although there is no hemoptysis. She has history of reflux disease for which she takes Protonix, but she still occasionally will have some symptoms. She reports although she takes prednisone 5 mg daily, but when she gets higher doses her breathing is better. She smoked for around 12 years, quit back in 2001. No family history of asthma. She has albuterol inhaler at home, which she does not think it helps. She was seen by Dr. Valdez in January in our office where she had a full PFT at that time. Her ratio was 75%, FEV1 was 74% predicted, total lung capacity was 91% predicted and DLCO was low at 55% predicted. The mid flow rate was 57% predicted. REVIEW OF SYSTEMS: CONSTITUTIONAL: She denied fever, chills or weight changes. EYES: She had no visual changes or blurring of vision. HEAD AND NECK: No hearing loss. She has congestion and occasional rhinitis, but she has no difficulty swallowing or sore in her mouth. She has some sore throat. CARDIOVASCULAR: She denied any chest pain, palpitation, or lower extremity edema. RESPIRATORY: As above. GASTROINTESTINAL: Sometimes nausea and vomiting. GENITOURINARY: She had no dysuria, [place] [address] CONSULTATION Name: FAMILIA GARCIA Room: [address] IN ..#: [id number] Admission: 02/21/19 Attend Phys: Oscar Duke Discharge: Date of : 60 Report #: [id number] MUSCULOSKELETAL: No deformities. She has some pain in the right knee. ENDOCRINE: She has a positive history of diabetes mellitus. HEMATOLOGIC: No bruising, no bleeding, no anemia. All systems reviewed with the patient and negative other than as mentioned above. PAST MEDICAL HISTORY: Diabetes mellitus, hypertension, coronary artery disease, renal and pancreatic transplant, hyperlipidemia, herpes zoster. PAST SURGICAL HISTORY: She had kidney transplant around 2004, pancreatic transplant and cardiac stent, tubal ligation, bilateral cataract surgery. FAMILY HISTORY: Positive for stroke, lung cancer. ALLERGIES: No known drug allergies. HOME MEDICATIONS: She is on CellCept, Zocor, omeprazole once a day, magnesium supplement, multivitamin. She has albuterol inhaler, Singulair, metoprolol, valacyclovir, tacrolimus and prednisone 5 mg daily. PHYSICAL EXAMINATION: VITAL SIGNS: Although when she came in she was requiring 3 liters oxygen, but during my visit, she was on room air with saturation more than 90%, blood pressure 140/59, pulse rate of 100, temperature 36.6. GENERAL: Awake, alert, oriented, not in distress, but she had some coughing episode during my visit, sounds congested and unable to produce yellow sputum. HEENT: Head normocephalic, atraumatic. Pupils are reactive to light, slightly pale. No jaundice. External ears looked normal. Oral cavity shows moist mucous membranes. Slight hyperemia in the back of her throat, but no thrush, no ulcers. NECK: Full range of movement. Trachea central. No palpable lymph nodes. CHEST: Diminished air movement bilaterally with end-expiratory wheezes and rhonchi, nontender to palpation. HEART: S1, S2. No murmur. ABDOMEN: Obese, soft, lax, benign, nontender. Positive bowel sounds. No masses felt. EXTREMITIES: Lower extremities show no edema, no calf tenderness. SKIN: Normal for age and race. No rash. PSYCHIATRIC: Mood and affect slightly anxious. Good insight and judgment. NEUROLOGIC: No focal weakness. LYMPHATICS: No palpable lymph node. LABORATORY DATA: She had a chest x-ray that was done upon hospitalization showed some basilar atelectasis, but no definite infiltrates. Her white blood count is 14.1, hemoglobin 12.7, platelets 288. ABG shows 7.43/35/71 upon [facility] [address] [place] [address] CONSULTATION Name: FAMILIA GARCIA Room: [address] IN [facility].#: [id number] Admission: 02/21/19 Attend Phys: Oscar Duke Discharge: Date of : 60 Report #: [id number] hospitalization that was done on 2 liters oxygen. Her creatinine is 1.8, which is close to baseline, BUN 20, potassium 4.2, sodium 132. Her BNP is 1872. INR of 1.1. IMPRESSION: 1. Acute hypoxic respiratory failure. 2. Bronchospasm. 3. Bronchitis. 4. Chronic cough. 5. History of coronary artery disease. 6. Hypertension. 7. Status post kidney and pancreatic transplant, on immunosuppressant medication. 8. Immunosuppressed state. The patient's PFTs demonstrated some evidence of small airway disease. She does not carry a diagnosis of asthma. She has remote history of smoking. At least, I think she has hyperreactive airway disease. However, in immunosuppressed state, bronchitis suspected. I agree with antibiotics. I agree with the steroids and scheduled nebulization treatment. I am going to consult corrections caseworker to arrange for home nebulization machine for her to use at home. She told me Dr. Valdez prescribed her Symbicort. She could not afford it. Also, she is concerned about potential thrush with the Symbicort. I did advise her to call her insurance company to see what better alternative cover for Symbicort because potentially as maintenance medicine will hopefully help control her symptoms. Meanwhile, we will continue treating her acute bronchospasm with steroids and antibiotics, scheduled nebulization treatments. Encourage ambulation. She had symptoms to suggest reflux disease, although she is on treatment and symptoms of nasal obstruction and allergic rhinitis. 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 Thank you for the consult. <ELECTRONICALLY SIGNED> By: Abiola Saleh MD 02/23/19 0802 0914 [id number] Lujan MD /nt
[2019-02-23 08:15] VITALS: BP 156/74
[2019-02-23 20:15] VITALS: BP 147/69
[2019-02-24 04:55] LABS: HEMATOCRIT 37.4 % (37.0-47.0); MCH 28.8 pg (26.0-34.0); MCV 90.1 fL (80.0-100.0); MPV 8.6 fl. (7.2-11.1); RBC 4.15 mil/uL (4.20-5.00); RDW-CV 16.1 % (10.5-14.5); WBC 14.5 thou/uL (4.0-11.0)
[2019-02-24 04:57] LABS: ALBUMIN 3.1 g/dL (3.4-5.0); CALCIUM 9.1 mg/dL (8.5-10.1); CREATININE 2.4 mg/dL (0.6-1.3); MAGNESIUM 2.2 mg/dL (1.8-2.4); POTASSIUM 4.9 mmol/L (3.5-5.1); TOTAL BILIRUBIN 0.4 mg/dL (<0.1-1.0); TOTAL PROTEIN 6.1 g/dL (6.4-8.2)
[2019-02-24 08:00] VITALS: BP 141/67
[2019-02-24 16:00] VITALS: BP 134/74
[2019-02-24 20:30] VITALS: BP 154/69
[2019-02-25 03:56] LABS: HEMATOCRIT 34.6 % (37.0-47.0); HEMOGLOBIN 11.2 gm/dL (12.0-15.0); MCH 28.8 pg (26.0-34.0); MCHC 32.3 g/dL (28.0-37.0); MCV 89.4 fL (80.0-100.0); MPV 8.4 fl. (7.2-11.1); RBC 3.87 mil/uL (4.20-5.00); RDW-CV 16.2 % (10.5-14.5); WBC 12.3 thou/uL (4.0-11.0)
[2019-02-25 04:06] LABS: CALCIUM 9.1 mg/dL (8.5-10.1); CREATININE 1.9 mg/dL (0.6-1.3); POTASSIUM 4.5 mmol/L (3.5-5.1)
[2019-02-25 06:13] VITALS: BP 164/77
[2019-02-25 08:40] VITALS: BP 184/83
[2019-02-25] MEDS ORDERED: CEFDINIR300 MG PO (11:25)
[2019-02-25] MEDS ORDERED: APAP W/CODEINE1 TA2 PO (11:25)
[2019-02-25] MEDS ORDERED: FLUCONAZOLE 10100 MG PO (11:25)
[2019-02-25] MEDS ORDERED: PREDNISONE 10 M10 MG PO (11:25)
[2019-02-25 13:55] VITALS: BP 184/83
[2019-02-25 14:17] VITALS: BP 184/83
[2019-02-25 15:05] VITALS: BP 184/83
== END 2019-02-25 14:50 | disposition home or self-care (01) | DRG 871 ==
LOC: M.ERS 08:26 → M.3W 10:06 → M.TBA-ER 10:06 → M.3W 11:31
PROVIDERS: Emergency Medicine; Family Medicine; Internal Medicine; ADMIT Internal Medicine
DX: A41.9 Sepsis, unspecified organism (principal); J69.0 Pneumonitis due to inhalation of food and vomit; J96.01 Acute respiratory failure with hypoxia; I50.32 Chronic diastolic (congestive) heart failure; Z94.0 Kidney transplant status; Z94.83 Pancreas transplant status; Z68.42 Body mass index [BMI] 45.0-49.9, adult; I13.0 Hypertensive heart and chronic kidney disease with heart failure and stage 1 through stage 4 chronic kidney disease, or unspecified chronic kidney disease; R65.10 Systemic inflammatory response syndrome (SIRS) of non-infectious origin without acute organ dysfunction; I25.10 Atherosclerotic heart disease of native coronary artery without angina pectoris; E78.5 Hyperlipidemia, unspecified; N18.3 Chronic kidney disease, stage 3 (moderate); E11.22 Type 2 diabetes mellitus with diabetic chronic kidney disease; D72.829 Elevated white blood cell count, unspecified; E78.00 Pure hypercholesterolemia, unspecified; D64.9 Anemia, unspecified; E11.65 Type 2 diabetes mellitus with hyperglycemia; E66.9 Obesity, unspecified; B37.9 Candidiasis, unspecified; I25.2 Old myocardial infarction; Z95.5 Presence of coronary angioplasty implant and graft; Z98.42 Cataract extraction status, left eye; Z98.41 Cataract extraction status, right eye; Z82.3 Family history of stroke; Z83.6 Family history of other diseases of the respiratory system; Z83.3 Family history of diabetes mellitus; Z82.49 Family history of ischemic heart disease and other diseases of the circulatory system

== ENCOUNTER → 2019-04-26 | Outpatient (CLI) | payer MEDICARE, BC ==
[~2019-04-26] MED LIST changes: +APAP W/CODEINE1 TA2 PO; +FLUCONAZOLE 10100 MG PO; +PREDNISONE 5 MG5 MG PO
== END ==
LOC: M.CT 10:38
DX: J84.10 Pulmonary fibrosis, unspecified (principal); I70.0 Atherosclerosis of aorta; I25.10 Atherosclerotic heart disease of native coronary artery without angina pectoris; J98.4 Other disorders of lung; J98.11 Atelectasis; K80.20 Calculus of gallbladder without cholecystitis without obstruction; M25.78 Osteophyte, vertebrae

== ENCOUNTER 2020-09-27 14:26 | Inpatient (IN) | payer MEDICARE, BC ==
[~2020-09-27] VITALS: Ht 170.2 cm; Wt 105.2 kg
[2020-09-27 14:43] VITALS: BP 175/71
[2020-09-27 15:08] LABS: ABSOLUTE BASOPHILS 0.1 thou/uL (0.0-0.2); ABSOLUTE EOSINOPHILS 0.2 thou/uL (0.0-0.7); ABSOLUTE LYMPHOCYTES 1.1 thou/uL (0.8-5.3); ABSOLUTE MONOCYTES 0.7 thou/uL (0.0-1.2); ABSOLUTE NEUTROPHILS 9.8 thou/uL (1.6-8.1); BASOPHILS 0.7 %; EOSINOPHILS 1.6 %; HEMATOCRIT 36.8 % (37.0-47.0); HEMOGLOBIN 12.2 gm/dL (12.0-15.0); LYMPHOCYTES 9.6 %; MCHC 33.2 g/dL (28.0-37.0); MCV 84.2 fL (80.0-100.0); MONOCYTES 5.5 %; MPV 6.9 fl. (7.2-11.1); NUCLEATED RBCS 0 /100WBC; PLATELET COUNT* 374 thou/uL (150-400); POLYS 82.6 %; RBC 4.37 mil/uL (4.20-5.00); RDW-CV 16.7 % (10.5-14.5); WBC 11.9 thou/uL (4.0-11.0)
[2020-09-27 15:19] LABS: CREATININE 1.2 mg/dL (0.6-1.3); POTASSIUM 4.6 mmol/L (3.5-5.1)
[2020-09-27 15:24] LABS: ALBUMIN 3.6 g/dL (3.4-5.0); TOTAL BILIRUBIN 0.6 mg/dL (<0.1-1.0); TOTAL PROTEIN 7.5 g/dL (6.4-8.2)
[2020-09-27 20:55] VITALS: BP 180/69
[2020-09-27 21:00] VITALS: BP 167/92
[2020-09-28] VITALS (7 sets, daily range): BP systolic 116–180; BP diastolic 44–94
[2020-09-28] MEDS ORDERED: HYDRALAZINE 2525 MG PO (01:32)
[2020-09-28 04:03] LABS: HEMATOCRIT 35.7 % (37.0-47.0); HEMOGLOBIN 11.9 gm/dL (12.0-15.0); MCHC 33.2 g/dL (28.0-37.0); MCV 84.1 fL (80.0-100.0); RBC 4.24 mil/uL (4.20-5.00); RDW-CV 16.3 % (10.5-14.5); WBC 14.1 thou/uL (4.0-11.0)
[2020-09-28 04:21] LABS: CALCIUM 9.1 mg/dL (8.5-10.1); CREATININE 1.5 mg/dL (0.6-1.3); POTASSIUM 4.5 mmol/L (3.5-5.1)
--- NOTE | 2020-09-28 06:02 | NUR ---
RECEIVED REPORT FROM ED RN. PT TRANSFERRED TO 208. PT AOX4. VSS. AOC AADC OPERATIONS STAFF OFFICER IN PLACE. ADMISSION HISTORY & PHYSICAL ASSESSMENT COMPLETED AND CHARTED. PT ON RA. PT TRACING SR ON TELE. PT UPSTANDBY TO RESTROOM. NIH CHARTED. ORIENTED TO ROOM & CALL LIGHT. PT COMPLAINED OF NECK & SHOULDER PAIN. FALL PRECAUTIONS IN PLACE. CALL LIGHT WITHIN REACH.
[2020-09-28 12:09] LABS: URINE BILIRUBIN NEGATIVE (Negative); URINE BLOOD TRACE (Negative); URINE CLARITY CLEAR; URINE COLOR YELLOW; URINE GLUCOSE-RANDOM NEGATIVE (Negative); URINE KETONES NEGATIVE (Negative); URINE LEUKOCYTES-REFLEX 1+ (Negative); URINE NITRITE-REFLEX NEGATIVE (Negative); URINE PROTEIN NEGATIVE (Negative); URINE SPECIFIC GRAVITY 1.015 (1.005-1.030); URINE UROBILINOGEN 0.2 E.U./dl (0.2-1.0)
[2020-09-28 12:14] LABS: BACTERIA-REFLEX 1-9 Few /HPF (None Seen); CASTS None Seen /LPF (None Seen); CRYSTALS None Seen /LPF (None Seen); MUCUS None Seen strn/LPF (None Seen); SQUAMOUS >10 Many /LPF (0-3); URINE RBC 3-10 Few /HPF (0-2); URINE WBC-REFLEX 6-15 Few /HPF (0-5)
--- NOTE | 2020-09-28 14:41 | EKG ---
[place] [address] ELECTROCARDIOGRAM REPORT Name: FAMILIA GARCIA Room: [address] ADM IN .R.#: [id number] Admission: 09/27/20 Attend Phys: Raleigh Sauer Discharge: Date of : 60 Date of Service: 09/27/20 1504 Report #: [id number] THIS REPORT FOR: //name// [facility] ED Test Date: 2020-09-27 Test Time: 15:04:15 Pat Name: FAMILIA GARCIA Department: Room: [facility] Gender: F Pegger Dobby Looms: SEN : 1960 Requested By: Guille Valera Order Number: [id number] MD: Aguilar Jonas Measurements Intervals Dillon Rate: 68 P: 37 MO: 167 QRS: 18 QRSD: 88 T: 4 QT: 406 QTc: 432 Interpretive Statements Sinus rhythm Compared to ECG 02/21/2019 08:59:41 T-wave abnormality no longer present Electronically Signed On 09-28-2020 14:41:49 CDT by Aguilar Jonas [email or web address] <ELECTRONICALLY SIGNED> By: Aguilar Jonas MD, [facility] 09/28/20 1441 1504 1504 Aguilar Jonas MD, [facility] /EPI
--- NOTE | 2020-09-28 15:18 | NUR ---
Pt is A&O. Resides at home with sis and HUSSEIN. Independent. Pt uses a walker at home and a cane in community. No home o2. Hx of HH. Hx of SNF at [facility] post knee. Goal is home with [facility], fax referral to [phone]
--- NOTE | 2020-09-28 17:50 | NUR ---
NO ACUTE EVENTS THIS SHIFT. PT CO N/V TODAY. ZOFRAN GIVEN WITH PARTIAL RELIEF. WAITING FOR NEUROLOGY TO SEE PT. WILL CONTINUE TO MONITOR.
[2020-09-29] VITALS: BP 115/61
[2020-09-29 02:07] LABS: GLYCOHEMOGLOBIN (HGB A1C) 7.5 % (4.8-5.6)
--- NOTE | 2020-09-29 05:37 | NUR ---
PT SLEPT ON AND OFF THIS SHIFT. ASSESSMENT DOCUMENTED. MEDS GIVEN PER E-JUN. IV PATENT. PAIN AND NAUSEA MEDS GIVEN PER E-JUN. PT REPORTING COUGH KEEPING HER AWAKE. FALL PRECAUTIONS IN PLACE. PT ABLE TO MAKE NEEDS KNOWN. WILL CONTINUE WITH PLAN OF CARE.
[2020-09-29 08:00] VITALS: BP 161/62
[2020-09-29 08:35] LABS: ALBUMIN 2.9 g/dL (3.4-5.0); CALCIUM 8.7 mg/dL (8.5-10.1); CREATININE 1.7 mg/dL (0.6-1.3); POTASSIUM 4.5 mmol/L (3.5-5.1); TOTAL BILIRUBIN 0.5 mg/dL (<0.1-1.0); TOTAL PROTEIN 6.2 g/dL (6.4-8.2)
[2020-09-29 08:44] LABS: ABSOLUTE BASOPHILS 0.1 thou/uL (0.0-0.2); ABSOLUTE EOSINOPHILS 0.2 thou/uL (0.0-0.7); ABSOLUTE LYMPHOCYTES 1.5 thou/uL (0.8-5.3); ABSOLUTE MONOCYTES 0.8 thou/uL (0.0-1.2); ABSOLUTE NEUTROPHILS 10.4 thou/uL (1.6-8.1); BASOPHILS 0.6 %; EOSINOPHILS 1.2 %; HEMATOCRIT 34.5 % (37.0-47.0); HEMOGLOBIN 11.2 gm/dL (12.0-15.0); LYMPHOCYTES 11.7 %; MCH 27.6 pg (26.0-34.0); MCHC 32.4 g/dL (28.0-37.0); MCV 85.2 fL (80.0-100.0); MONOCYTES 6.1 %; MPV 7.1 fl. (7.2-11.1); NUCLEATED RBCS 0 /100WBC; PLATELET COUNT* 353 thou/uL (150-400); POLYS 80.4 %; RBC 4.05 mil/uL (4.20-5.00); RDW-CV 17.1 % (10.5-14.5); WBC 12.9 thou/uL (4.0-11.0)
[2020-09-29 12:00] VITALS: BP 140/50
[2020-09-29 16:00] VITALS: BP 181/67
--- NOTE | 2020-09-29 18:47 | NUR ---
PT RESTING ON HER BED, PT GOT UP ONE TIME AFTER LUNCH AND GOT DIZZY AND FELT NAUSEATED BUT DID NOT WANT ANY MEDICATIONS FOR THE NAUSEA. PT LAIDED BACK DOWN AND RESTED AND WAS FINE, WE GOT UP AND WALKED TO THE BATHROOM USING THE WALKER, WITH SLOW STEADY GAIT. VSS AFEBRILE. WILL CONTINUE TO MONITOR PLAN OF CARE.
[2020-09-29 19:45] VITALS: BP 147/54
[2020-09-30] VITALS (7 sets, daily range): BP systolic 113–191; BP diastolic 45–81
--- NOTE | 2020-09-30 05:28 | NUR ---
PT SLEPT MOST OF SHIFT. ASSESSMENT DOCUMENTED. MEDS GIVEN PER E-MAR. IV PATENT, FLUIDS INFUSING. TYLENOL GIVEN FOR PAIN PER E-MAR WITH RELIEF. FALL PRECAUTIONS IN PLACE. PT ABLE TO MAKE NEEDS KNOWN. WILL CONTINUE WITH PLAN OF CARE.
[2020-09-30 08:19] LABS: NUCLEATED RBCS 0 /100WBC; RDW-CV 17.2 % (10.5-14.5)
[2020-09-30 08:21] LABS: ABSOLUTE BASOPHILS 0.1 thou/uL (0.0-0.2); ABSOLUTE EOSINOPHILS 0.3 thou/uL (0.0-0.7); ABSOLUTE LYMPHOCYTES 1.7 thou/uL (0.8-5.3); ABSOLUTE MONOCYTES 0.7 thou/uL (0.0-1.2); ABSOLUTE NEUTROPHILS 7.7 thou/uL (1.6-8.1); BASOPHILS 0.7 %; EOSINOPHILS 2.7 %; HEMATOCRIT 41.2 % (37.0-47.0); HEMOGLOBIN 13.1 gm/dL (12.0-15.0); LYMPHOCYTES 16.4 %; MCH 28.2 pg (26.0-34.0); MCHC 31.8 g/dL (28.0-37.0); MCV 88.7 fL (80.0-100.0); MONOCYTES 6.3 %; PLATELET COUNT* 332 thou/uL (150-400); POLYS 73.9 %; RBC 4.65 mil/uL (4.20-5.00); WBC 10.4 thou/uL (4.0-11.0)
[2020-09-30 08:23] LABS: CREATININE 1.4 mg/dL (0.6-1.3); POTASSIUM 4.4 mmol/L (3.5-5.1)
--- NOTE | 2020-10-01 00:06 | NUR ---
ASSUMED CARE OF PT AT 1900. PT IS ALERT AND ORIENTED. VSS. PERRLA. NO COMPLAINTS OF PAIN. PT IS IN SINUS RYTHM ON THE TELEMETRY. PT IS RESTING COMFORTABLY IN BED. RESPIRATIONS ARE EVEN AND NONLABORED. WILL CONTINUE TO MONITOR PT.
[2020-10-01 04:00] VITALS: BP 195/72
--- NOTE | 2020-10-01 05:00 | NUR ---
AT 0445, PTS SPO2 IS IN THE 80'S. PT HAS A WET COUGH. FLUIDS STOPPED. O2 PLACED ON PT.
[2020-10-01 05:33] LABS: CALCIUM 8.7 mg/dL (8.5-10.1); CREATININE 1.6 mg/dL (0.6-1.3); POTASSIUM 4.7 mmol/L (3.5-5.1)
[2020-10-01 06:03] LABS: ABSOLUTE EOSINOPHILS 0.2 thou/uL (0.0-0.7); ABSOLUTE LYMPHOCYTES 1.6 thou/uL (0.8-5.3); ABSOLUTE MONOCYTES 0.6 thou/uL (0.0-1.2); ABSOLUTE NEUTROPHILS 9.1 thou/uL (1.6-8.1); BASOPHILS 0.4 %; HEMATOCRIT 32.7 % (37.0-47.0); MCH 28.3 pg (26.0-34.0); MCHC 32.8 g/dL (28.0-37.0); MCV 86.4 fL (80.0-100.0); MONOCYTES 5.6 %; MPV 7.1 fl. (7.2-11.1); NUCLEATED RBCS 0 /100WBC; PLATELET COUNT* 308 thou/uL (150-400); RBC 3.78 mil/uL (4.20-5.00); RDW-CV 17.1 % (10.5-14.5); WBC 11.6 thou/uL (4.0-11.0)
[2020-10-01 07:30] LABS: HEMOGLOBIN 10.7 gm/dL (12.0-15.0)
[2020-10-01 08:00] VITALS: BP 154/58
[2020-10-01 12:10] VITALS: BP 154/58
[2020-10-01] MEDS ORDERED: NEURONTIN 300M300 M2 PO (12:15)
[2020-10-01] MEDS ORDERED: MUCINEX600 MG PO (12:15)
[2020-10-01] MEDS ORDERED: CEFDINIR300 MG PO (12:15)
[2020-10-01] MEDS ORDERED: COZAAR 50 MG TA50 M1 PO (12:15)
[2020-10-01] MEDS ORDERED: ZOFRAN4 MG PO (12:15)
[2020-10-01 13:14] VITALS: BP 154/58
--- NOTE | 2020-10-01 13:36 | NUR ---
DC orders written. CM faxed HH orders to [facility]. RT to complete ex ox to determine if Pt needs o2 at dc, CM following.
[2020-10-01 14:09] VITALS: BP 126/54
--- NOTE | 2020-10-01 15:37 | NUR ---
PT DID ALRIGHT WHILE AMBULATING. PT WAS ABLE TO MAINTAIN OXYGEN SATURATION ABOVE 88 WITHOUT ANY OXYGEN. PT IS ABLE TO BE DISCHARGED FROM HOSPITAL WITHOUT OXYGEN.
--- NOTE | 2020-10-01 16:05 | NUR ---
ASSUMED PT CARE AT 0730, PT AOX4, NO C/O NAUSEA THIS MORNING. POTASSIUM BEING REPLACED PER E'LYTE PROTOCOL. ICE PACKS PROVIDED FOR RT KNEE. PT GOAL IS TO REMAIN FREE FROM NAUSEA. PT NOW M/S STATUS
--- NOTE | 2020-10-01 16:07 | NUR ---
ASSUMED PT CARE AT 0730, PT AOX4, NO C/O PAIN OR SHORTNESS OF BREATH. PT WORKED W/ RT AND NO O2 NEEDED TO GO HOME. HH SET UP BY RONA. DC ORDERS RECEIVED. IV AND IMPROVEMENT ANALYST REMOVED. PT DC'D BY WC W/ NURSING STAFF AND ALL PAPERWORK AND PERSONAL BELONGINGS TO SISTER'S VEHICLE AT APPROX 1610.
== END 2020-10-01 16:09 | disposition home health service (06) | DRG 698 ==
LOC: M.ERS 14:26 → M.TBA-ER 16:27 → M.2W 16:27
PROVIDERS: Emergency Medicine Emergency Medical Services; Family Medicine; Internal Medicine; ADMIT Internal Medicine; ATTEND Internal Medicine
DX: T86.12 Kidney transplant failure (principal); R65.11 Systemic inflammatory response syndrome (SIRS) of non-infectious origin with acute organ dysfunction; N17.9 Acute kidney failure, unspecified; E87.1 Hypo-osmolality and hyponatremia; D84.9 Immunodeficiency, unspecified; N39.0 Urinary tract infection, site not specified; Z94.0 Kidney transplant status; E86.0 Dehydration; R74.01 Elevation of levels of liver transaminase levels; E11.9 Type 2 diabetes mellitus without complications; I25.10 Atherosclerotic heart disease of native coronary artery without angina pectoris; E78.5 Hyperlipidemia, unspecified; I10 Essential (primary) hypertension; T48.295A Adverse effect of other drugs acting on muscles, initial encounter; Z20.822 Contact with and (suspected) exposure to COVID-19; Y92.89 Other specified places as the place of occurrence of the external cause; I25.2 Old myocardial infarction; Z95.5 Presence of coronary angioplasty implant and graft; Z79.899 Other long term (current) drug therapy